=== PATIENT | male | born 1955 | race Caucasian/White ===

== ENCOUNTER → 2022-02-05 09:30 | Outpatient (CLI) | payer MEDICARE, SELFPAY ==
--- NOTE | ~2022-02-05 | XR_ITS ---
XR shoulder RT min 2V DATE: 02/05/2022 09:53 INDICATION: Right shoulder pain. No injury TECHNIQUE: 4 views COMPARISON: None FINDINGS: No fracture or dislocation, periosteal reaction or bone destruction. No abnormal right susan ulder soft tissue calcification. Degenerative spurring of the thoracic spine. IMPRESSION: Degenerative spurring of the thoracic spine No significant abnormality of the right shoulder Reviewed, dictated and finalized at location [facility]
== END ==
PROVIDERS: PCP Emergency Medicine; Visit Provider Emergency Medicine
DX: M25.511 Pain in right shoulder (principal)
CPT/HCPCS: 73030

== ENCOUNTER 2022-02-09 08:00 | Outpatient (CLI) | payer MEDICARE, SELFPAY ==
[2022-02-09 19:34] LABS: Basophils Absolute Auto 0.1 K/mm3 (0.0-0.1); Basophils Percent Auto 0.8 % (0.2-1.2); Eosinophils Absolute Auto 0.2 K/mm3 (0-0.3); Eosinophils Percent Auto 3.1 % (0-4.4); Hematocrit 50.3 % (42.0-52.0); Hemoglobin 16.7 g/dL (14.0-18.0); Immature Granulocyte Absolute 0.02 K/mm3 (0.00-0.031); Immature Granulocyte Percent A 0.3 % (0-0.5); Lymphocytes Percent Auto 24.4 % (18.3-44.2); Mean Corpuscular HGB Conc 33.2 g/dl (32-36); Mean Corpuscular Hemoglobin 28.4 pg (26-34); Mean Corpuscular Volume 85.7 fl (80-100); Mean Platelet Volume 10.2 fl (7.4-10.4); Monocytes Absolute Auto 0.3 K/mm3 (0.1-0.6); Monocytes Percent Auto 5.2 % (2.6-8.5); Neutrophils Absolute Auto 4.1 K/mm3 (1.3-6.7); Neutrophils Percent Auto 66.2 % (45.5-73.1); Platelet Count Result 166 k/mm3 (150-375); Red Blood Count 5.87 M/mm3 (4.6-6.20); Red Cell Distribution Width 13.3 % (11.5-14.5); White Blood Count 6.2 K/mm3 (4.5-10.0)
[2022-02-09 20:51] LABS: Alanine Aminotransferase 39 U/L (6-50); Albumin Level 4.5 g/dL (3.5-5.1); Alkaline Phosphatase 89 U/L (38-126); Anion Gap 12 mmol/L (8-16); Aspartate Amino Transferase 42 U/L (17-59); Bilirubin,Total 0.8 mg/dL (0.2-1.3); Blood Urea Nitrogen 19 mg/dL (9-20); Calcium 9.1 mg/dL (8.4-10.2); Carbon Dioxide 29 mmol/L (22-30); Chloride 100 mmol/L (98-107); Cholesterol 187 mg/dL (0-200); Estimated Glomerular Filt Rate 55; Glucose 72 mg/dL (65-110); HDL Direct 31 mg/dL; Potassium 4.5 mmol/L (3.4-5.0); Sodium 141 mmol/L (137-145); Triglycerides 243 mg/dL (<150)
[2022-02-09 20:59] LABS: Prostate Specific Antigen 2.7 ng/mL (< OR = 4.0)
[2022-02-09 21:01] LABS: LDL Cholesterol Direct 96 mg/dL
[2022-02-09 22:09] LABS: Hemoglobin A1C 5.2 % (<5.7)
== END 2022-02-09 08:01 | disposition home or self-care (01) ==
LOC: ANHGOSHLAB 08:04
PROVIDERS: PCP Emergency Medicine; Visit Provider Emergency Medicine
DX: E78.2 Mixed hyperlipidemia (principal); R53.83 Other fatigue; N18.9 Chronic kidney disease, unspecified; M25.511 Pain in right shoulder; I12.9 Hypertensive chronic kidney disease with stage 1 through stage 4 chronic kidney disease, or unspecified chronic kidney disease; Z12.5 Encounter for screening for malignant neoplasm of prostate
CPT/HCPCS: 36415; 80053; 80061; 83036; 84153; 84443; 85025; G0103

== ENCOUNTER 2022-03-26 10:00 | Outpatient (RCR) | payer MEDICARE, SELFPAY ==
--- NOTE | 2022-02-25 16:37 | PTOPEVAL1 ---
Assessment and note entered by Michael Vazquez, PT, DPT Evaluation Information Assessment Status Evaluation Diagnosis R shoulder pain Onset ~3 months Subjective Information Pt states he has had shoulder pain for the last couple of months. He cannot recall a CLIFF, he states he golfs some but does not remember a pain during this. He states over the last couple of weeks his shoulder has gradually getting better regarding pain and ROM but it is not steady improvement as he has some good days and bad days. Reported Pain Level Pain Score 3: Self Report Assessment PT Clinical Summary Mike presents to therapy to therapy today for his initial evaluation with a diagnosis R shoulder pain. Today he demonstrates decreased active and passive flexion and abduction, decreased strength with resisted abduction and flexion. He demonstrates active flexion to 120 deg and active abduction to 70 deg. He has positive shoulder impingement symptoms. He demonstrates forward and rounded shoulder with poor stooped posture. Skilled physical therapy services are indicated to address posture, strength, ROM, and pain management. Plan of Care Interventions Electrical Stimulation,Hot Pack/Cold Pack,Manual Therapy,Neuro Re-education,Patient/Caregiver Educati,Therapeutic Activities,Therapeutic Exercise PT Services Indicated Yes Treatment Frequency and 2x/wk for 4 wks Duration These treatments will address the objective and functional deficits as defined above. The patient will be advanced safely and appropriately in order for the patient to progress towards his/her prior level of function. Additional exercises will be introduced and as well as a comprehensive home exercise program upon discharge, if needed, ?to ensure carryover of functional gains achieved in the clinic. This treatment plan has been reviewed and agreement upon by the patient.
--- NOTE | 2022-03-26 10:47 | PTOPDC ---
Assessment and note entered by Michael Vazquez, PT, DPT Evaluation Information Assessment Status Discharge Diagnosis R shoulder pain Onset ~3 months Subjective Information Pt states overall things are a lot better. He states his pain is low and does not prevent him from doing anything. He also denies any sharp pains in the last month or so. He states his ROM is better but still decreased from the L. Pt reports 90% improvement in overall symptoms. Reported Pain Level Pain Score 1: Self Report Assessment PT Clinical Summary Mike presents to therapy today for his progress report following 7 visits of skilled therapy to treat his R shoulder pain. Today he demonstrates improved active ROM that is now within 15 deg of his uninvolved side. He demonstrates active flexion to 142 deg and active abduction to 140 deg . He demonstrates jagjit shoulder strength that is grossly 4+/5. He does reports he is leery about returning to golf in the spring but that at this time he cannot think of any limitations. He has met all of his therapy goals at this time. He no longer requires skilled therapy and will be discharged to continue his HEP independently. Plan of Care PT Services Indicated No Treatment Frequency and to be discharged Duration
== END 2022-03-26 14:58 | disposition home or self-care (01) ==
LOC: ANHGOSHPT 10:00
PROVIDERS: PCP Emergency Medicine; Visit Provider Emergency Medicine
DX: M25.511 Pain in right shoulder (principal)
CPT/HCPCS: 97110; 97112; 97140; 97161; 97530

== ENCOUNTER 2022-05-31 12:52 | Outpatient (CLI) | payer MEDICARE, SELFPAY ==
[2022-05-31 21:26] LABS: Folic Acid 13.4 ng/mL (2.76->20)
[2022-06-05 14:08] LABS: Testosterone Free 34.6 pg/mL (35.0-155.0); Testosterone Total 270 ng/dL (250-1100)
== END 2022-05-31 12:53 | disposition home or self-care (01) ==
LOC: ANHGOSHLAB 12:53
PROVIDERS: PCP Internal Medicine; Visit Provider Internal Medicine
DX: E29.1 Testicular hypofunction (principal); M25.561 Pain in right knee; M25.562 Pain in left knee; R53.83 Other fatigue
CPT/HCPCS: 36415; 82607; 82746; 84402; 84403

== ENCOUNTER → 2022-05-31 13:06 | Outpatient (CLI) | payer MEDICARE, SELFPAY ==
--- NOTE | ~2022-05-31 | XR_ITS ---
Right Knee Technique: AP, lateral, notch, and sunrise views were obtained. Clinical History: Pain Findings: No fracture or dislocation is seen. Osseous alignment is anatomic. Joint spaces are preserv ed without degenerative or erosive change. Soft tissues are unremarkable. No joint effusion is seen. Impression: Unremarkable right knee radiographs. Reviewed, dictated and finalized at location . Impression: Unremarkable right knee radiographs.
--- NOTE | ~2022-05-31 | XR_ITS ---
Left Knee Technique: AP, lateral, notch, and sunrise views were obtained. Clinical History: Pain Findings: No fracture or dislocation is seen. Osseous alignment is anatomic. Joint spaces are preserv ed without degenerative or erosive change. Soft tissues are unremarkable. No joint effusion is seen. Impression: Unremarkable left knee radiographs. Reviewed, dictated and finalized at location . Impression: Unremarkable left knee radiographs.
== END ==
PROVIDERS: PCP Internal Medicine; Visit Provider Internal Medicine
DX: M25.561 Pain in right knee (principal); M25.562 Pain in left knee
CPT/HCPCS: 73564

== ENCOUNTER 2022-07-30 09:00 | Outpatient (RCR) | payer MEDICARE, SELFPAY ==
--- NOTE | 2022-06-17 13:17 | PTOPEVAL1 ---
Assessment and note entered by Michael Vazquez, PT, DPT Evaluation Information Assessment Status Evaluation Diagnosis jagjit knee pain Onset 6+ months Subjective Information Pt reports intermittent knee pain that is mostly the issue when going up and down stairs. He states his pain is worse first thing in the morning, after prolonged sitting, and later in the evening after hes been up all day. He states intermittent anterior knee with burning sensations. Pt reports also difficulty getting up from the floor. Pt states the pain is something he could live with, it is just annoying. Reported Pain Level Pain Score 2,2: Self Report Assessment PT Clinical Summary Mike presents to therapy today for his initial evaluation with a diagnosis of jagjit knee pain. Today he demonstrates great ROM and good knee strength through MMT. He demonstrates decreased hip strength jagjit leading to medial to lateral knee instability. He demonstrates hypermobility of his patella with a bias to rest medially. Skilled physical therapy services are indicated to promote knee stability, improve functional knee strength, to manage pain, to improve functional mobility. Plan of Care Interventions Electrical Stimulation,Gait Training,Hot Pack/Cold Pack,Manual Therapy,Neuro Re-education,Patient/ Caregiver Educati,Therapeutic Activities, Therapeutic Exercise PT Services Indicated Yes Treatment Frequency and 1x/wk for 6 wks Duration These treatments will address the objective and functional deficits as defined above. The patient will be advanced safely and appropriately in order for the patient to progress towards his/her prior level of function. Additional exercises will be introduced and as well as a comprehensive home exercise program upon discharge, if needed, ?to ensure carryover of functional gains achieved in the clinic. This treatment plan has been reviewed and agreement upon by the patient.
--- NOTE | 2022-07-30 09:48 | PTOPDC ---
Assessment and note entered by Michael Vazquez, PT, DPT Evaluation Information Assessment Status Discharge Diagnosis jagjit knee pain Onset 6+ months Subjective Information Pt states his knee is feeling a little better. He states doing the exercises as well as increasing his overall activity has really helped. He states going up stairs is pretty good, he states going down the stairs still causes some discomfort. Pt reports at least 50% improvement in his overall symptoms. Reported Pain Level Pain Score 1,1: Self Report Assessment PT Clinical Summary Mike presents to therapy today for his progress report following 6 visits of skilled therapy to treat his jagjit knee pain. Today he demonstrates improve hip and knee strength jagjit, improved stability with functional movements, decreased deviations during stair climbing, and decreased pain overall. He has met all of his therapy goals as this time and will be discharged with instructions to continue his HEP and to follow up with referring provider if needed. Plan of Care PT Services Indicated No
== END 2022-07-30 15:37 | disposition home or self-care (01) ==
LOC: ANHGOSHPT 09:00
PROVIDERS: PCP Internal Medicine; Visit Provider Internal Medicine
DX: M25.561 Pain in right knee (principal); M25.562 Pain in left knee
CPT/HCPCS: 97110; 97112; 97161; 97530

== ENCOUNTER 2023-04-10 17:22 | Emergency (ER) | payer MEDICARE, SELFPAY ==
[2023-04-10 17:33] VITALS: BP 126/87; PULSE 91; RESP 16; TEMP 36.8; O2SAT 99
--- NOTE | 2023-04-10 17:59 | ED.ABDPAIN ---
HPI - Abdominal Pain General Chief Complaint: Abdominal Pain Stated Complaint: Stomach Pain Time Seen by Provider: 04/10/23 17:45 Source: patient, family () and RN notes reviewed Mode of arrival: ambulatory Limitations: no limitations History of Present Illness HPI narrative: Patient presents today complaining of a 3 day history epigastric pain that has now spread below both ribs. Describes the pain as constant that occasionally radiates into back. He had 1 episode of vomiting 2 days ago, but no lingering nausea. He also reports some constipation. He had 2 small bowel movements today, but this is out of the norm for him. Denies numbness or tingling, dizziness or lightheadedness, chest pain or shortness of breath, diarrhea, recent illness. Currently rates his pain 4/10. He has been taking his Nexium without relief. He still has his appendix and gallbladder. Related Data Home Medications Medication Instructions Recorded Confirmed cetirizine 10 mg tablet (Zyrtec) 10 mg PO DAILY PRN 02/05/22 08/12/22 ibuprofen 200 mg capsule 200 mg PO Q6H PRN 02/05/22 08/12/22 esomeprazole magnesium 20 mg 20 mg PO DAILY 05/31/22 08/12/22 capsule,delayed release (Nexium) Allergies Allergy/AdvReac Type Severity Reaction Status Date / Time meperidine [From Demerol] AdvReac Mild Nausea and Verified 08/12/22 07:46 Vomiting Review of Systems Review of Systems: CONSTITUTIONAL: Denies body aches, fever, chills, or sweats. EYES: Denies visual changes, redness, or discharge. ENT: Denies rhinorrhea, congestion, sore throat, or otalgia. CARDIOVASCULAR: Denies chest pain, palpitations, or edema. RESPIRATORY: Denies cough or dyspnea. GASTROINTESTINAL: Denies nausea, vomiting, or diarrhea.+ abdominal pain, constipation GENITOURINARY: Denies dysuria or hematuria. SKIN: Denies rash, itching, or wounds. MUSCULOSKELETAL: Denies back pain, joint pain, or myalgia. NEUROLOGIC: Denies headache, numbness, tingling, or weakness. PSYCH: Denies depression or anxiety. [facility] Family History Family History Father Family hx of lung cancer Diabetes mellitus Hypertension Mother Hypertension Social History Social History Smoking status: Never smoker Alcohol intake: current Alcohol use details: rarely, once a month Substance use type: does not use Lack of Transportation: No Lack of Food: Never True Current Housing: I Have Housing Concerned About Future Housing: No Difficulty Paying Gas/Electric Bills: No Difficulty Paying for Meds: No Currently Unemployed: No Education: Bachelor's Degree Difficulty w/ Childcare or Family Care: No Comments At time of signature, I have reviewed and agree with nursing past medical, surgical, social and family history unless otherwise noted. Please see nursing chart for further information. There is no relevant family history pertinent to the presenting complaint Exam Narrative: GENERAL: Well-appearing, well-nourished, and in no acute distress. HEAD: Normocephalic, atraumatic. EYES: EOMI. No redness or drainage. Conjunctivae normal. ENT: Mucous membranes pink and moist. NECK: Normal AROM. Supple. No lymphadenopathy. CHEST: No respiratory distress. Clear to auscultation. HEART: Regular rate and rhythm. No murmur appreciated. Normal peripheral pulses. ABDOMEN: Soft, nondistended, normal active bowel sounds. + tender in the epigastrium and right upper quadrant without rebound or guarding. MUSCULOSKELETAL: No bony tenderness. Back is nontender. EXTREMITIES: Normal range of motion. No edema. SKIN: Warm, dry, no rash. Capillary refill normal. Normal skin turgor. NEURO: No focal deficits. Alert and oriented x3. Gait steady. PSYCH: Normal affect. No signs of depression or anxiety. Course Course Level of Care: Express Care Visit Vital Signs Vital
== END 2023-04-10 18:11 | disposition left against medical advice (07) ==
PROVIDERS: Emergency Provider Nurse Practitioner; PCP Internal Medicine
DX: R10.11 Right upper quadrant pain (principal); R10.13 Epigastric pain
CPT/HCPCS: 99211; G0463

== ENCOUNTER 2023-04-11 16:28 | Outpatient (CLI) | payer MEDICARE, SELFPAY ==
--- NOTE | ~2023-04-11 | CT_ITS ---
EXAMINATION: CT abdomen pelvis w con DATE: 04/11/2023 17:14 INDICATION: Abdominal pain. TECHNIQUE: Computed tomography (CT) of the abdomen and pelvis was performed without intravenous contr ast. Automated exposure control and iterative reconstruction technique were employed. The dose-length product was 982.71 mGy-cm. COMPARISON: None. FINDINGS: The visualized portions of the lung bases demonstrate a 6 mm nodule in right lower lobe, li nany benign. No pleural effusion. The heart size is normal. There are coronary artery calcifications. No pericardial effusion. The liver and spleen are normal. There is a gallstone in the gallbladder, w hich is distended. Gallbladder wall thickening is noted. There is mild fat stranding around the gallb ladder. The pancreas, adrenal glands, and left kidney is normal. There is a 5 mm cyst in right kidney . The prostate is moderately enlarged. There is a left inguinal hernia containing fat. There is diver ticulosis of the colon without evidence of diverticulitis. The appendix is normal. Aortic atheroscler osis is noted. There are no pathologically enlarged lymph nodes. There is no free intraperitoneal flu id. There is an umbilical hernia containing fat. There is severe lumbar spondylosis and moderate thor acic spondylosis. IMPRESSION: 1. Acute cholecystitis. Reviewed, dictated and finalized at location [facility] [place] [employer] IMPRESSION: 1. Acute cholecystitis.
[2023-04-11 16:52] LABS: Basophils Absolute Auto 0.1 K/mm3 (0.0-0.1); Basophils Percent Auto 0.5 % (0.2-1.2); Eosinophils Absolute Auto 0.1 K/mm3 (0-0.3); Eosinophils Percent Auto 0.5 % (0-4.4); Hematocrit 50.8 % (42.0-52.0); Hemoglobin 17.2 g/dL (14.0-18.0); Immature Granulocyte Absolute 0.05 K/mm3 (0.00-0.031); Immature Granulocyte Percent A 0.4 % (0-0.5); Lymphocytes Absolute Auto 0.98 K/mm3 (0.9-3.2); Lymphocytes Percent Auto 8.2 % (18.3-44.2); Mean Corpuscular HGB Conc 33.9 g/dl (32-36); Mean Corpuscular Hemoglobin 27.9 pg (26-34); Mean Corpuscular Volume 82.3 fl (80-100); Mean Platelet Volume 9.4 fl (7.4-10.4); Monocytes Absolute Auto 0.4 K/mm3 (0.1-0.6); Monocytes Percent Auto 3.7 % (2.6-8.5); Neutrophils Absolute Auto 10.3 K/mm3 (1.3-6.7); Neutrophils Percent Auto 86.7 % (45.5-73.1); Platelet Count Result 173 k/mm3 (150-375); Red Blood Count 6.17 M/mm3 (4.6-6.20); Red Cell Distribution Width 12.9 % (11.5-14.5); White Blood Count 11.9 K/mm3 (4.5-10.0)
[2023-04-11 16:54] LABS: Appearance Urine Clear (Clear); Bilirubin Urine Negative (Negative); Blood Urine Negative (Negative); Color Urine Yellow (Yellow); Glucose Urine UA Negative (Negative); Ketones Urine 1+ mg/dL (Negative); Leukocyte Esterase Ur Negative LEU/UL (NEGATIVE); Nitrate Urine Negative (Negative); Protein Urine Negative (Negative); Specific Grav Ur 1.021 (1.001-1.035); Urobilinogen Urine 0.2 mg/dL (<2.0)
[2023-04-11 17:03] LABS: Alanine Aminotransferase 39 U/L (6-50); Albumin Level 4.6 g/dL (3.5-5.1); Alkaline Phosphatase 98 U/L (38-126); Amylase 92 U/L (30-110); Anion Gap 9 mmol/L (8-16); Aspartate Amino Transferase 35 U/L (17-59); Bilirubin,Total 1.1 mg/dL (0.2-1.3); Blood Urea Nitrogen 26 mg/dL (9-20); Calcium 9.5 mg/dL (8.4-10.2); Carbon Dioxide 30 mmol/L (22-30); Chloride 101 mmol/L (98-107); Estimated Glomerular Filt Rate > 60; Glucose 108 mg/dL (65-110); Lipase 137 U/L (23-300); Potassium 3.8 mmol/L (3.4-5.0); Sodium 140 mmol/L (137-145)
[2023-04-11 17:05] LABS: Add Urine Microscopic? NO
[2023-04-11 17:05] LABS: Estimated Glomerular Filt Rate 47
[2023-04-11 17:33] LABS: Erythrocyte Sedimentation Rate 6 mm/hr (0-20)
== END 2023-04-11 16:29 | disposition home or self-care (01) ==
PROVIDERS: PCP Internal Medicine; Visit Provider Internal Medicine
DX: K81.0 Acute cholecystitis (principal); R19.8 Other specified symptoms and signs involving the digestive system and abdomen
CPT/HCPCS: 36415; 74177; 80053; 81003; 82150; 83690; 85025; 85652; Q9967

== ENCOUNTER 2023-04-11 20:02 | Inpatient (IN) | payer MEDICARE, SELFPAY ==
--- NOTE | 2023-04-11 20:15 | ADMGEN ---
This patient, Mike Cintron, was admitted to Medical Room 249-01. Patient/family oriented to hospital policies and general routines including ID bracelet, bed and alarms, visiting hours, pain management, procedures, bathroom and other care routines, personal items, smoking policy, room service/diet, and visiting hours. Information on how to activate the Rapid Response Team has been discussed. Patient/Family are encouraged to report perceived risks to care and to ask questions if they do not understand what they are told or what they should do.
[2023-04-11] MEDS: PIPERACILLN/TAZ 3.375GM/NS50ML 3.375 GM/50 ML BAG IVPB (20:57)
[2023-04-11 21:46] VITALS: BMI 33.2
[2023-04-11 21:47] VITALS: BP 137/75; PULSE 67; RESP 20; TEMP 36.9; O2SAT 95
[2023-04-11] MEDS: MORPHINE SULFATE (*CRX) 2 MG/ML INJ IV PUSH (23:33)
[2023-04-11] MEDS: ONDANSETRON INJ 4 MG/2 ML VIAL IV PUSH (23:33)
[2023-04-11] MEDS: SODIUM CHLORIDE 0.9% IV 1,000 ML 100 ML IV CONT (23:33)
[2023-04-12] VITALS (17 sets, daily range): BP systolic 103–142; BP diastolic 70–97; PULSE 85–105; RESP 13–23; TEMP 36.2–37.2; O2SAT 90–100
[2023-04-12] MEDS: PIPERACILLN/TAZ 3.375GM/NS50ML 3.375 GM/50 ML BAG IVPB ×2 (02:03→09:44)
[2023-04-12] MEDS: ACETAMINOPHEN 325 MG TABLET 650 MG PO (02:05)
[2023-04-12 05:37] LABS: Basophils Percent Auto 0.3 % (0.2-1.2); Eosinophils Absolute Auto 0.1 K/mm3 (0-0.3); Eosinophils Percent Auto 0.5 % (0-4.4); Hematocrit 47.4 % (42.0-52.0); Hemoglobin 15.9 g/dL (14.0-18.0); Immature Granulocyte Absolute 0.04 K/mm3 (0.00-0.031); Immature Granulocyte Percent A 0.3 % (0-0.5); Lymphocytes Absolute Auto 1.12 K/mm3 (0.9-3.2); Lymphocytes Percent Auto 9.7 % (18.3-44.2); Mean Corpuscular HGB Conc 33.5 g/dl (32-36); Mean Corpuscular Hemoglobin 27.7 pg (26-34); Mean Corpuscular Volume 82.7 fl (80-100); Mean Platelet Volume 9.8 fl (7.4-10.4); Monocytes Absolute Auto 0.7 K/mm3 (0.1-0.6); Monocytes Percent Auto 5.8 % (2.6-8.5); Neutrophils Absolute Auto 9.6 K/mm3 (1.3-6.7); Neutrophils Percent Auto 83.4 % (45.5-73.1); Platelet Count Result 156 k/mm3 (150-375); Red Blood Count 5.73 M/mm3 (4.6-6.20); Red Cell Distribution Width 12.7 % (11.5-14.5); White Blood Count 11.6 K/mm3 (4.5-10.0)
[2023-04-12 05:49] LABS: Alanine Aminotransferase 66 U/L (6-50); Alkaline Phosphatase 92 U/L (38-126); Anion Gap 8 mmol/L (8-16); Aspartate Amino Transferase 63 U/L (17-59); Bilirubin,Total 1.9 mg/dL (0.2-1.3); Blood Urea Nitrogen 24 mg/dL (9-20); Calcium 8.7 mg/dL (8.4-10.2); Carbon Dioxide 29 mmol/L (22-30); Chloride 102 mmol/L (98-107); Estimated CRCL calculation 59 ml/min; Estimated Glomerular Filt Rate 55; Glucose 122 mg/dL (65-110); Potassium 4.1 mmol/L (3.4-5.0); Sodium 139 mmol/L (137-145)
--- NOTE | 2023-04-12 09:23 | PM.IMHP ---
H&P: HPI History of Present Illness Date/Time: 04/12/23 09:23 Chief Complaint: Epigastric abdominal pain Narrative: This is a 68 year old man who was directly admitted for acute calculous cholecystitis. He reports having epigastric abdominal pain for 4 days. He ate pizza last and woke up around 1 am that night with pain. The pain is constant and radiates into his back. Initially he thought it could be heartburn, but this pain was different and persisted even with taking omeprazole. He had associated nausea and vomiting.? He also reports some constipation, but moved his bowels yesterday twice.? His pain radiates into his mid back and was aggravated by eating over the past few days. He went to the urgent care for his pain 2 days ago. They recommended going to the ER and he refused. He called his PCP yesterday and he was seen. They ordered outpatient labs and CT scan of the abdomen and pelvis, which showed acute calculous cholecystitis. Following the CT results, his PCP facilitated a direct admission. His labs showed a WBC count of 11k and normal LFTs yesterday. Repeat labs today showed his AST and ALT up in the 60's and his total bilirubin up to 1.9. He is now seen and still having RUQ abdominal pain. He feels that over the past day or so, his pain has localized primarily to the RUQ. No previous abdominal surgeries. Review of Systems Review of Systems: All systems reviewed & are unremarkable except as noted in HPI and below PMFSH Past Medical History Medical History Chronic kidney disease (CKD) Hyperlipidemia Hypertension Family History Family History Father Family hx of lung cancer Diabetes mellitus Hypertension Mother Hypertension Social History Social History Social History: Caffeine-coffee/tea/soda Smoking status: Never smoker Alcohol intake: never Alcohol use details: rarely, once a month Substance use: never Substance use type: does not use Do You Feel Safe in your Home?: No Lack of Transportation: No Lack of Food: Never True Current Housing: I Have Housing Concerned About Future Housing: No Difficulty Paying Gas/Electric Bills: No Difficulty Paying for Meds: No Currently Unemployed: No Education: Bachelor's Degree Difficulty w/ Childcare or Family Care: No Spiritual care concerns: No Meds Home Medications and Allergies Home Medications Medication Instructions Recorded Confirmed Type ibuprofen 200 mg capsule 600 mg PO Q6H PRN Pain (Scale 02/05/22 04/11/23 History Score 1-3) hydrochlorothiazide 12.5 mg tablet 12.5 mg PO DAILY #90 tabs 02/28/23 04/11/23 Rx lisinopril 40 mg tablet 40 mg PO DAILY #90 tabs 02/28/23 04/11/23 Rx hydrocortisone 2.5 % topical cream 1 applic topical BID PRN 04/11/23 04/11/23 History with perineal applicator Hemorrhoids omeprazole 40 mg capsule,delayed 40 mg PO DAILY #30 caps 04/11/23 04/11/23 Rx release Allergies Allergy/AdvReac Type Severity Reaction Status Date / Time meperidine [From Demerol] AdvReac Mild Nausea and Verified 04/11/23 15:15 Vomiting Vital Signs Vital Signs - 24 hr 04/11/23 20:22 04/11/23 21:47 04/12/23 05:14 Temperature 98.5 F 98.1 F Pulse Rate 67 86 Respiratory Rate 20 20 Blood Pressure 137/75 125/78 Pulse Oximetry 95 97 Oxygen Delivery Room Air Exam Const: General: comfortable and no acute distress Nutritional Appearance: average body habitus Orientation/consciousness: patient oriented x3 HENMT: Head: normocephalic and atraumatic Ears: hearing grossly normal bilaterally Mouth: Yes moist mucous membranes Eyes: General: appearance normal, both eyes and all related structures Pupils: Equal, round and reactive pupils present Neck: Neck: normal visual inspection and full ROM Resp: Effort & Inspection: no re
--- NOTE | 2023-04-12 09:25 | PC.NURSE ---
To OR via stretcher. Family at bedside. Voiding without difficulty. Verbal report given to Caitlin CLOUD Preop at bedside.
[2023-04-12] MEDS: LACTATED RINGERS 1,000 ML 30 ML IV CONT ×2 (09:44→12:00)
--- NOTE | 2023-04-12 10:40 | WPDHPUPDATE1 ---
History and Physical Update Update Date/Time: 04/12/23 10:40 History and Physical has been reviewed, including an updated exam of the patient. There are NO changes in the patient's condition. Risks, benefits, and alternatives have been discussed and questions answered. Patient agrees to proceed with procedure.
--- NOTE | 2023-04-12 10:47 | WPDANESEPPF ---
Anes - Initial Pre Proc Eval Procedure: Operation Date: 04/12/23 11:00 Proposed Procedures p Laparoscopic Cholecystectomy - Jasmine Morris MD Date/Time: 04/12/23 10:47 Surgeon: Jasmine Morris MD Pre Op Diagnosis: Cholecystitis Patient Data Age: 68 Gender: M Height: 1.75 m Weight: 102.1 kg Last Vital Signs Temp 97.9 F 04/12/23 09:46 Pulse 85 04/12/23 09:46 Resp 16 04/12/23 09:46 BP 116/70 04/12/23 09:46 Pulse Ox 97 04/12/23 09:46 O2 Del Method Room Air 04/12/23 09:46 Allergies Allergy/AdvReac Type Severity Reaction Status Date / Time meperidine [From Demerol] AdvReac Mild Nausea and Verified 04/11/23 15:15 Vomiting Home Medications Medication Instructions Recorded Confirmed Type ibuprofen 200 mg capsule 600 mg PO Q6H PRN Pain (Scale 02/05/22 04/11/23 History Score 1-3) hydrochlorothiazide 12.5 mg tablet 12.5 mg PO DAILY #90 tabs 02/28/23 04/11/23 Rx lisinopril 40 mg tablet 40 mg PO DAILY #90 tabs 02/28/23 04/11/23 Rx hydrocortisone 2.5 % topical cream 1 applic topical BID PRN 04/11/23 04/11/23 History with perineal applicator Hemorrhoids omeprazole 40 mg capsule,delayed 40 mg PO DAILY #30 caps 04/11/23 04/11/23 Rx release Laboratory Tests 04/12/23 05:25 WBC 11.6 H K/mm3 (4.5-10.0) RBC 5.73 M/mm3 (4.6-6.20) Hgb 15.9 g/dL (14.0-18.0) Hct 47.4 % (42.0-52.0) MCV 82.7 fl (80-100) MCH 27.7 pg (26-34) MCHC 33.5 g/dl (32-36) RDW 12.7 % (11.5-14.5) Plt Count 156 k/mm3 (150-375) MPV 9.8 fl (7.4-10.4) Immature Gran % (Auto) 0.3 % (0-0.5) Neut % (Auto) 83.4 H % (45.5-73.1) Lymph % (Auto) 9.7 L % (18.3-44.2) [place] % (Auto) 5.8 % (2.6-8.5) Eos % (Auto) 0.5 % (0-4.4) Baso % (Auto) 0.3 % (0.2-1.2) Lymph # (Auto) 1.12 K/mm3 (0.9-3.2) [place] # (Auto) 0.7 H K/mm3 (0.1-0.6) Eos # (Auto) 0.1 K/mm3 (0-0.3) Baso # (Auto) 0.0 K/mm3 (0.0-0.1) Abs Immat Gran (auto) 0.04 H K/mm3 (0.00-0.031) Absolute Neuts (auto) 9.6 H K/mm3 (1.3-6.7) Absolute Nucleated RBC 0.0 K/mm3 (0.0-0.012) Nucleated RBC % 0.0 % (0.0-0.2) Sodium 139 mmol/L (137-145) Potassium 4.1 mmol/L (3.4-5.0) Chloride 102 mmol/L (98-107) Carbon Dioxide 29 mmol/L (22-30) Anion Gap 8 mmol/L (8-16) BUN 24 H mg/dL (9-20) Creatinine 1.30 mg/dL (0.7-1.3) Estim Creat Clear Calc 59 ml/min Estimated GFR 55 L (59 - ) Glucose 122 H mg/dL (65-110) Calcium 8.7 mg/dL (8.4-10.2) Total Bilirubin 1.9 H mg/dL (0.2-1.3) AST 63 H U/L (17-59) ALT 66 H U/L (6-50) Alkaline Phosphatase 92 U/L (38-126) Total Protein 7.0 g/dL (6.3-8.2) Albumin 4.0 g/dL (3.5-5.1) Patient hx anesthesia problems: none Family hx anesthesia problems: none Results Review: All pre-operative results and documents have been reviewed as part of the pre-operative evaluation. [facility] Past Medical History Medical History Chronic kidney disease (CKD) Hyperlipidemia Hypertension Family History Family History Father Family hx of lung cancer Diabetes mellitus Hypertension Mother Hypertension Social History Social History Social History: Caffeine-coffee/tea/soda Smoking status: Never smoker Alcohol intake: never Alcohol use details: rarely, once a month Substance use: never Substance use type: does not use Do You Feel Safe in your Home?: No Lack of Transportation: No Lack of Food: Never True Current Housing: I Have Housing Concerned About Future Housing: No Difficulty Paying Gas/Electric Bills: No Difficulty Paying for Meds: No Currently Unemployed: No Education: Bachelor's Degree Difficulty w/ Childcare or Family C
[2023-04-12] MEDS: BUPivacaine HCL 0.5% PF 30 ML VIAL INFILTRATE (11:18)
--- NOTE | 2023-04-12 11:52 | W.PM.PROC2 ---
Procedure Note - Detailed Date of Procedure 04/12/23 Pre-op Diagnosis Acute cholecystitis, cholelithiasis Post-op Diagnosis Other ( acute hydrops cholecystitis, cholelithiasis) Procedure Performed Laparoscopic cholecystectomy Surgeon Jasmine Morris MD Anesthesia General Indications 68-year-old male presented to the hospital complaining of severe epigastric, right upper quadrant abdominal pain associated with nausea, vomiting and bloating. . Workup including imaging significant for cholecystitis, cholelithiasis. Findings Acute hydrops cholecystitis with cholelithiasis Description of Procedure The patient was taken to the operating room placed in the supine position. After adequate induction of general anesthesia, the patient was prepped and draped in normal sterile fashion. A time-out was then performed to verify the patient's identity as well as the procedure being performed. I then made a 5 mm incision in the infraumbilical region. Through this, a Veress needle was placed into the peritoneal cavity and CO2 gas was then insufflated. After adequate pneumoperitoneum was achieved, the Veress needle was removed and a 5 mm optiview trocar was placed through this incision under direct visualization. I then placed the laparoscope through this trocar site and under direct visualization placed a further 12 mm subxiphoid port as well as 2 additional 5 mm ports in the right upper abdomen. The gallbladder was then identified and was noted to be severely inflamed, distended, and with noted impacted large stone at the neck of the gallbladder. Given these findings, the gallbladder was decompressed with an aspirating needle. At this point, the patient was noted to have hydrops cholecystitis. I was then able to place a grasper at the dome of the gallbladder and this was retracted anterior and cephalad up over the liver. A 2nd retractor was then placed at the infundibulum and retracted laterally, this allowed visualization of the triangle of Calot. There was noted to be a significant amount of inflammation throughout the gallbladder and there was noted to be a large amount of friability. I then was able to visualize the cystic duct in its entirety from its proximal insertion into the gallbladder, to its distal junction with the common hepatic/common bile duct junction. At this point, I carefully skeletonized the proximal cystic duct with the [place] dissector. I then clipped and transected the proximal cystic duct. Next I visualized the cystic artery. Again the artery was skeletonized, clipped, and transected. I then used the Bovie cautery to take down the peritoneal attachments of the gallbladder off the liver bed. This was difficult given the amount of inflammation in the posterior space. Once the gallbladder specimen was completely detached, an endo-pouch was placed through the 12 mm port site. I then placed the gallbladder specimen into the Endo pouch and removed the endo-pouch from the 12 mm port site. Of note, I did have to enlarge the 12 mm port site to allow extraction of the specimen. The specimen will now be sent to pathology for further review. I then copiously irrigated the right upper quadrant. Some mild oozing was noted in the liver bed and this was controlled with the bovie cautery. I then placed some hemostatic powder in the liver bed. Hemostasis was noted in the liver bed, the clips were noted to be in good position on both the cystic duct stump and the cystic artery stump. No other pathology was noted in the right upper quadrant. I then moved the laparoscope to the subxiphoid port. No iatrogenic injury or other pathology was noted in the lower abdomen. I then closed the 12 mm trocar site under direct visualization using the Garett cone and 0 Vicryl suture. At this point, the abdomen was desufflated and all ports removed. All port sites were then closed with 4.O Monocryl subcuticular sutures. Dermabond was placed on each incision. The melissa
[2023-04-12] MEDS: fentaNYL CITRATE INJ (*CRX) 100 MCG/2 ML VIAL 25 MCG IV PUSH ×4 (12:06→13:41)
--- NOTE | 2023-04-12 14:15 | PC.NURSE ---
Returned from OR via stretcher. Family at bedside.
[2023-04-12] MEDS: SODIUM CHLORIDE 0.9% IV 1,000 ML 100 ML IV CONT (14:20)
[2023-04-12] MEDS: HYDROcodone/acetaminophen (*CRX) 5-325 MG TABLET 1 TAB PO ×2 (14:51→20:24)
[2023-04-12] MEDS: IBUPROFEN 600 MG TABLET PO (18:10)
[2023-04-12] MEDS: PANTOPRAZOLE 40 MG TABLET PO (20:24)
[2023-04-13] MEDS: HYDROcodone/acetaminophen (*CRX) 5-325 MG TABLET 1 TAB PO ×4 (00:51→12:54)
[2023-04-13] MEDS: SODIUM CHLORIDE 0.9% IV 1,000 ML 100 ML IV CONT (00:54)
[2023-04-13 05:38] VITALS: BP 118/68; PULSE 78; RESP 20; TEMP 36.5; O2SAT 93
[2023-04-13 08:00] VITALS: PULSE 78; RESP 20; O2SAT 93
[2023-04-13 09:12] LABS: Alanine Aminotransferase 129 U/L (6-50); Albumin Level 3.8 g/dL (3.5-5.1); Alkaline Phosphatase 104 U/L (38-126); Anion Gap 7 mmol/L (8-16); Aspartate Amino Transferase 87 U/L (17-59); Bilirubin,Total 1.8 mg/dL (0.2-1.3); Blood Urea Nitrogen 26 mg/dL (9-20); Calcium 8.2 mg/dL (8.4-10.2); Carbon Dioxide 28 mmol/L (22-30); Chloride 103 mmol/L (98-107); Estimated CRCL calculation 64 ml/min; Estimated Glomerular Filt Rate > 60; Glucose 89 mg/dL (65-110); Potassium 3.5 mmol/L (3.4-5.0); Sodium 138 mmol/L (137-145)
[2023-04-13] MEDS: lisinopriL 20 MG TABLET 40 MG PO (09:20)
[2023-04-13] MEDS: hydroCHLOROthiazide 12.5 MG CAPSULE PO (09:20)
[2023-04-13] MEDS: PANTOPRAZOLE 40 MG TABLET PO (09:20)
--- NOTE | 2023-04-13 09:28 | WPDANESPN ---
Anes - Prog Note Post-Op Date/Time: 04/13/23 09:28 Cardiovascular status: normal Respiratory status: normal Airway patency: baseline Mental status: baseline Post-Op hydration status: normal Vital Signs: Last Vital Signs Temp 36.5 C 04/13/23 05:38 Pulse 78 04/13/23 05:38 Resp 20 04/13/23 05:38 BP 118/68 04/13/23 05:38 Pulse Ox 93 04/13/23 05:38 O2 Del Method Room Air 04/12/23 20:00 O2 Flow Rate 3 04/12/23 13:45 Pain Score (VAS): 05/28 I/O: Intake & Output 04/12/23 04/13/23 04/13/23 23:59 07:59 15:59 Intake Total 222 1390 Output Total 0 Balance 222 1390 Laboratory Tests 04/12/23 05:25 04/13/23 08:56 04/13/23 08:56 Sodium 138 Potassium 3.5 Chloride 103 Carbon Dioxide 28 Anion Gap 7 L BUN 26 H Creatinine 1.20 Estim Creat Clear Calc 64 Estimated GFR > 60 Glucose 89 Calcium 8.2 L Total Bilirubin 1.8 H AST 87 H ALT 129 H Alkaline Phosphatase 104 Total Protein 7.0 Albumin 3.8 Post-procedural complaints: none Patient Feedback: Patient satisfied with anesthetic care.
--- NOTE | 2023-04-13 10:22 | PM.DS ---
DS: Admitting Diagnosis Discharge Date 04/13/23 Admitting Diagnosis Acute calculous cholecystitis DS: Discharge Diagnosis Discharge Diagnosis (1) Acute calculous cholecystitis: Code(s): K80.00 - Calculus of gallbladder with acute cholecystitis without obstruction Status: Acute (2) Elevated LFTs: Code(s): R79.89 - Other specified abnormal findings of blood chemistry Status: Acute (3) Hypertension: Code(s): I10 - Essential (primary) hypertension Status: Chronic Assessment and Plan: Remained stable. Resume home medications. (4) Chronic kidney disease (CKD): Code(s): N18.9 - Chronic kidney disease, unspecified Status: Chronic Assessment and Plan: Remained stable. DS: Summary Hospital Course Reason for hospitalization: This is a 68 year old man who was having abdominal pain for about 3 days. He was seen by his primary care provider who ordered outpatient labs and a CT scan of the abdomen and pelvis that showed evidence of acute calculous cholecystitis. He was directly admitted in the setting of acute calculous cholecystitis. Hospital Course: He was started on broad-spectrum IV antibiotics, IV fluids, and made NPO. He was taken for laparoscopic cholecystectomy by Dr. Morris on 04/12/2023. His repeat labs did show his total bilirubin, AST, and ALT 1 up from his labs the day before. Total bilirubin was 1.9. Labs were repeated postop day 1 and remained stable with the bilirubin down to 1.8. Transaminitis likely related to the acute cholecystitis. Patient's diet was advanced to low-fat by postop day 1. He was tolerating his diet and activity. No specific complaints this morning. He is stable for discharge today. Follow up with Dr. Morris in 2 weeks. Status at Discharge Functional status at discharge: independent ambulation Overall status at discharge: patient is progressing back to baseline Time Spent with Patient Time attestation: Total time spent providing and/or coordinating discharge services: Time spent: Less than 30 minutes Exam Const: General: comfortable and no acute distress GI: Inspection: non-distended and incision (incisions dry and intact) GI Palp: Yes Soft to palpation, Yes Tenderness to palpation present (GI) (incisional) and No Guarding due to palpation present (GI) Auscultation: normal bowel sounds Neuro: General: moves all extremities and no focal motor deficits Extrem: General: no calf tenderness and no edema Psych: Mental Status: mental status grossly normal Insight: Good insight present (Psych) DS: Data Data Completed and Pending Completed studies during hospitalization: Pending at discharge 04/12/23 11:18 Surgical [PTH] Routine Labs on day of discharge: Labs from last 24 hours 04/13/23 08:56 Sodium 138 Potassium 3.5 Chloride 103 Carbon Dioxide 28 Anion Gap 7 L BUN 26 H Creatinine 1.20 Estim Creat Clear Calc 64 Estimated GFR > 60 Glucose 89 Calcium 8.2 L Total Bilirubin 1.8 H AST 87 H ALT 129 H Alkaline Phosphatase 104 Total Protein 7.0 Albumin 3.8 Procedures/Treatments: Procedures Operation Date: 04/12/23 11:00 Actual Procedure Side Surgeon p Laparoscopic Cholecystectomy Not Applicable Jasmine Morris MD Discharge Plan Discharge Attending physician on discharge: Jasmine Morris Discharging Clinician: Jasmine Morris Patient Disposition: Home, Self-Care Activity: may shower, as tolerated and other - see discharge instructions Diet: as tolerated Wound Care Instructions: incision open to air Discharge Instructions: DISCHARGE INSTRUCTION SHEET FOR HERNIA, GALLBLADDER AND APPENDIX SURGERIES DR. MORRIS 1. May shower in 24 hours, no soaking in bath x 2weeks. 2. Call office for: Wound increasingly painful or bleeding Vomiting Fever of greater than 101 degrees 3. If no bowel movement for three days, take 1 oz. (30 ml) Milk of Magnesia or
== END 2023-04-13 13:00 | disposition home or self-care (01) | DRG 418 ==
PROVIDERS: Admitting Provider Surgery; PCP Internal Medicine; Visit Provider Nurse Practitioner Family
PROC: 0FT44ZZ Resection of Gallbladder, Percutaneous Endoscopic Approach (ICD-10-PCS; CPT 47562; principal; 2023-04-12 11:00)
DX: K80.00 Calculus of gallbladder with acute cholecystitis without obstruction (principal); K82.1 Hydrops of gallbladder; I12.9 Hypertensive chronic kidney disease with stage 1 through stage 4 chronic kidney disease, or unspecified chronic kidney disease; N18.9 Chronic kidney disease, unspecified; E78.5 Hyperlipidemia, unspecified; E66.9 Obesity, unspecified; Z68.33 Body mass index [BMI] 33.0-33.9, adult
CPT/HCPCS: 36415; 74177; 80053; 81003; 82150; 83690; 85025; 85652; 88304; 96374; 96375; 99211; A9270; G0378; G0463; J1100; J1170; J1596; J2250; J2270; J2405; J2543; J2704; J2710; J3010; J7030; J7120; Q9967

== ENCOUNTER 2023-11-15 08:16 | Outpatient (CLI) | payer MEDICARE, SELFPAY ==
[2023-11-15 13:06] LABS: Alanine Aminotransferase 23 U/L (6-50); Albumin Level 4.1 g/dL (3.5-5.1); Alkaline Phosphatase 74 U/L (38-126); Anion Gap 7 mmol/L (4-12); Aspartate Amino Transferase 35 U/L (17-59); Bilirubin,Total 0.7 mg/dL (0.2-1.3); Blood Urea Nitrogen 20 mg/dL (9-20); Carbon Dioxide 32 mmol/L (22-30); Chloride 101 mmol/L (98-107); Cholesterol 157 mg/dL (0-200); Estimated Glomerular Filt Rate 55; Glucose 83 mg/dL (65-110); HDL Direct 36 mg/dL; Potassium 4.6 mmol/L (3.4-5.0); Sodium 140 mmol/L (137-145); Triglycerides 141 mg/dL (<150)
[2023-11-15 13:07] LABS: Basophils Absolute Auto 0.1 K/mm3 (0.0-0.1); Basophils Percent Auto 1.2 % (0.2-1.2); Eosinophils Absolute Auto 0.2 K/mm3 (0-0.3); Eosinophils Percent Auto 3.7 % (0-4.4); Hemoglobin 16.1 g/dL (14.0-18.0); Immature Granulocyte Absolute 0.02 K/mm3 (0.00-0.031); Immature Granulocyte Percent A 0.3 % (0-0.5); Lymphocytes Absolute Auto 1.37 K/mm3 (0.9-3.2); Lymphocytes Percent Auto 22.9 % (18.3-44.2); Mean Corpuscular HGB Conc 33.5 g/dl (32-36); Mean Corpuscular Hemoglobin 28.3 pg (26-34); Mean Corpuscular Volume 84.4 fl (80-100); Mean Platelet Volume 10.2 fl (7.4-10.4); Monocytes Absolute Auto 0.3 K/mm3 (0.1-0.6); Monocytes Percent Auto 4.7 % (2.6-8.5); Neutrophils Percent Auto 67.2 % (45.5-73.1); Platelet Count Result 143 k/mm3 (150-375); Red Blood Count 5.69 M/mm3 (4.6-6.20); Red Cell Distribution Width 13.2 % (11.5-14.5)
[2023-11-15 13:17] LABS: LDL Cholesterol Direct 85 mg/dL
[2023-11-15 13:35] LABS: Prostate Specific Antigen 3.3 ng/mL (< OR = 4.0)
== END 2023-11-15 08:17 | disposition home or self-care (01) ==
PROVIDERS: PCP Internal Medicine; Visit Provider Nurse Practitioner
DX: Z12.5 Encounter for screening for malignant neoplasm of prostate (principal); I12.9 Hypertensive chronic kidney disease with stage 1 through stage 4 chronic kidney disease, or unspecified chronic kidney disease; N18.9 Chronic kidney disease, unspecified
CPT/HCPCS: 36415; 80053; 80061; 84153; 85025; G0103

== ENCOUNTER 2023-12-20 08:19 | Outpatient (CLI) | payer MEDICARE, SELFPAY ==
[2023-12-20 14:05] LABS: Basophils Percent Auto 0.7 % (0.2-1.2); Eosinophils Absolute Auto 0.2 K/mm3 (0-0.3); Eosinophils Percent Auto 3.2 % (0-4.4); Hematocrit 48.2 % (42.0-52.0); Hemoglobin 16.2 g/dL (14.0-18.0); Immature Granulocyte Absolute 0.02 K/mm3 (0.00-0.031); Immature Granulocyte Percent A 0.4 % (0-0.5); Lymphocytes Absolute Auto 1.48 K/mm3 (0.9-3.2); Mean Corpuscular HGB Conc 33.6 g/dl (32-36); Mean Corpuscular Hemoglobin 28.3 pg (26-34); Mean Corpuscular Volume 84.3 fl (80-100); Mean Platelet Volume 10.5 fl (7.4-10.4); Monocytes Absolute Auto 0.3 K/mm3 (0.1-0.6); Monocytes Percent Auto 5.3 % (2.6-8.5); Neutrophils Absolute Auto 3.7 K/mm3 (1.3-6.7); Neutrophils Percent Auto 64.4 % (45.5-73.1); Platelet Count Result 153 k/mm3 (150-375); Red Blood Count 5.72 M/mm3 (4.6-6.20); Red Cell Distribution Width 13.1 % (11.5-14.5); White Blood Count 5.7 K/mm3 (4.5-10.0)
== END 2023-12-20 08:20 | disposition home or self-care (01) ==
LOC: ANHGOSHLAB 08:21
PROVIDERS: PCP Internal Medicine; Visit Provider Nurse Practitioner
DX: D69.6 Thrombocytopenia, unspecified (principal)
CPT/HCPCS: 36415; 85025